=== PATIENT | male | born 1990 | race African-American/Black ===

== ENCOUNTER 2016-08-07 10:10 | Emergency (ER) ==
[2016-08-07 10:17] VITALS: BP 140/86; TEMP 98.1; BMI 34.4
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
== END 2016-08-07 12:06 | disposition home or self-care (01) ==
LOC: ED 10:10
DX: S43.401A Unspecified sprain of right shoulder joint, initial encounter (principal); Y04.0XXA Assault by unarmed brawl or fight, initial encounter
CPT/HCPCS: 99283

== ENCOUNTER 2018-06-02 01:31 | Emergency (ER) ==
[2018-06-02 01:45] VITALS: BP 144/62; TEMP 98.6; BMI 29.1
[2018-06-02] MEDS ORDERED: NORFLEX IM STA (02:26)
[2018-06-02] MEDS ORDERED: TORADOL IM STA (02:26)
--- NOTE | 2018-06-02 02:29 | ED.PDOC ---
General ED Provider: Dr. KAMALA CLARK Chief Complaint: Shoulder Pain/Injury Stated Complaint: Patient is a 28 year old who comes to the ER with one day history of right neck , shoulder and scapular pain. Denies any injury. Time Seen by Physician: 02:27 Mode of Arrival: Walk-In Information Source: Patient Exam Limitations: No limitations [facility] and Triage Documentation Reviewed and Agree: Yes Does patient meet sepsis criteria?: No System Inflammatory Response Syndrome: Not Applicable Sepsis Protocol: For patient's 13 years and over: Temp is 96.8 and below OR 101 and greater Pulse >90 BPM Resp >20/minute Acutely Altered Mental Status Are patient's symptoms suggestive of a new infection, such as: -Pneumonia -Skin, Soft Tissue -Endocarditis -UTI -Bone, Joint Infection -Implantable Device -Acute Abdominal Infection -Wound Infection -Meningitis -Blood Stream Catheter Infection -Unknown Review of Systems - Review Of Systems Constitutional: Reports: No symptoms Eyes: Reports: No symptoms Ears, Nose, Mouth, Throat: Reports: No symptoms Respiratory: Reports: No symptoms Cardiac: Reports: No symptoms GI: Reports: No symptoms : Reports: No symptoms Musculoskeletal: Reports: Back pain, Joint pain, Neck pain Skin: Reports: No symptoms Neurological: Reports: Anxiety Endocrine: Reports: No symptoms Hematologic/Lymphatic: Reports: No symptoms All Other Systems: Reviewed and Negative Past Medical History - Past Medical History Previously Healthy: Yes Endocrine: Reports: None Cardiovascular: Reports: None Respiratory: Reports: None Hematological: Reports: None Gastrointestinal: Reports: None Genitourinary: Reports: None Neuro/Psych: Reports: None Musculoskeletal: Reports: Other (Right shoulder injury ) Cancer: Reports: None - Surgical History General Surgical History: Reports: Orthopedic (toe surgery) - Family History Family History: Reports: None - Social History Smoking Status: Current every day smoker, Light tobacco smoker Hx Substance Use: No Alcohol Screening: Occasionally - Immunizations Tetanus Shot up to Date: Yes Physical Exam - Physical Exam Appearance: Well-appearing Pain Distress: Severe Neck: Supple Respiratory: Airway patent, Breath sounds clear, Breath sounds equal, Respirations nonlabored Cardiovascular: RRR, Pulses normal, No rub, No murmur GI/: Soft, Nontender, No masses, Bowel sounds normal, No Organomegaly Musculoskeletal: Normal strength, ROM intact, No edema Skin: Warm Neurological: Sensation intact Psychiatric: Anxious Critical Care Note - Critical Care Note Total Time (mins): 0 Course - Course Orders, Labs, Meds: Orders Category Date Time Status Ketorolac Tromethamine [Toradol] MEDS 06/02/18 02:26 Stat 60 mg IM ONCE STA Orphenadrine Citrate [Norflex] MEDS 06/02/18 02:26 Stat 60 mg IM ONCE STA Vital Signs: Temp Pulse Resp BP Pulse Ox 06/02/18 01:32 98.6 F 89 20 144/62 H 97 Departure - Departure Time of Disposition: 03:15 Disposition: HOME SELF-CARE Discharge Problem: Shoulder pain Back pain Qualifiers: Back pain location: thoracic back pain Chronicity: acute Back pain laterality: right Qualified Code(s): M54.6 - Pain in thoracic spine Instructions: Arthralgia (ED), Back Pain (ED), Shoulder Sprain (ED) Condition: Stable Pt referred to PMD for follow-up: Yes IPMP verified?: No Additional Instructions: take medications as prescribed Follow up with PCP in 3 days Prescriptions: Cyclobenzaprine HCl [Flexeril] 10 mg PO DAILY PRN #20 tablet PRN Reason: spasms Ibuprofen [Motrin] 600 mg PO Q6H PRN #30 tablet PRN Reason: Analgesia Allergies/Adverse Reactions: Allergies No Known Allergies Allergy (Verified 06/02/18 01:45) Home Medications: Ambulatory Orders Cyclobenzaprine HCl [Flexeril] 10 mg PO DAILY PRN #20 tablet 06/02/18 Ibuprofen [Motrin] 600 mg PO Q6H PRN #30 tablet 06/02/18 Disposition Discussed With: Patient
== END 2018-06-02 03:31 | disposition home or self-care (01) ==
LOC: ED 01:31
DX: M54.6 Pain in thoracic spine (principal); M25.511 Pain in right shoulder; M54.2 Cervicalgia; F17.210 Nicotine dependence, cigarettes, uncomplicated
CPT/HCPCS: 96372; 99282

== ENCOUNTER 2018-10-01 23:12 | Emergency (ER) ==
[2018-10-01 23:15] VITALS: BP 121/86; TEMP 97.3; BMI 29.2
--- NOTE | 2018-10-01 23:25 | ED.PDOC ---
General ED Provider: Dr. VICKIE ADAN-ER Chief Complaint: Tooth Problem Stated Complaint: my tooth hurts Time Seen by Physician: 23:22 Mode of Arrival: Walk-In Information Source: Patient Exam Limitations: No limitations Primary Care Provider: DENAE MCMILLAN Nursing and Triage Documentation Reviewed and Agree: Yes Does patient meet sepsis criteria?: No System Inflammatory Response Syndrome: Not Applicable Sepsis Protocol: For patient's 13 years and over: Temp is 96.8 and below OR 101 and greater Pulse >90 BPM Resp >20/minute Acutely Altered Mental Status Are patient's symptoms suggestive of a new infection, such as: -Pneumonia -Skin, Soft Tissue -Endocarditis -UTI -Bone, Joint Infection -Implantable Device -Acute Abdominal Infection -Wound Infection -Meningitis -Blood Stream Catheter Infection -Unknown EENT Complaint Exam - Dental/Oral Complaint/Exam Mechanism of Injury: No known trauma Onset/Duration: 2 days Symptoms Are: Still present Timing: Constant Initial Severity: Mild Current Severity: Moderate Location: right lower molar Character: Reports: Dull, Aching, Throbbing Aggravating: Reports: Heat, Cold, Chewing Associated Signs and Symptoms: Denies: Swelling, Discharge, Fever, Foul odor, Foul taste in mouth Related History: Reports: Similar episode, Previous tooth problem Tooth Findings: Present: Percussion tenderness, Gross decay, Gross caries Cervical Lymphadenopathy Present: No Facial Swelling Present: Yes Bleeding Present: No Oropharynx Findings: Absent: Clots, Active bleeding Septal Hematoma: No Foreign Body Present: No Dysphagia Present: No Drooling Present: No Asymmetrical Tonsillar Swelling Present: No Uvula Midline: Yes [place]-tonsillar Fluctuence: No Trismus Present: No Palatal Petechiae Present: No Scarlatinaform Rash Present: No Differential Diagnoses: Dental Abcess, Dental Caries, Fractured Tooth Review of Systems - Review Of Systems Constitutional: Reports: No symptoms Eyes: Reports: No symptoms Ears, Nose, Mouth, Throat: Reports: Mouth pain, Mouth swelling Respiratory: Reports: No symptoms Cardiac: Reports: No symptoms GI: Reports: No symptoms : Reports: No symptoms Musculoskeletal: Reports: No symptoms Skin: Reports: No symptoms Neurological: Reports: No symptoms Endocrine: Reports: No symptoms Hematologic/Lymphatic: Reports: No symptoms All Other Systems: Reviewed and Negative Past Medical History - Past Medical History Previously Healthy: Yes Endocrine: Reports: None Cardiovascular: Reports: None Respiratory: Reports: None Hematological: Reports: None Gastrointestinal: Reports: None Genitourinary: Reports: None Neuro/Psych: Reports: None Musculoskeletal: Reports: Other (Right shoulder injury ) Cancer: Reports: None - Surgical History General Surgical History: Reports: Orthopedic (toe surgery) - Family History Family History: Reports: None - Social History Smoking Status: Current every day smoker, Light tobacco smoker Hx Substance Use: No Alcohol Screening: Occasionally - Immunizations Tetanus Shot up to Date: No Physical Exam - Physical Exam Appearance: Well-appearing Pain Distress: Moderate Eyes: ARELY ENT: Ears normal, Nose normal, Oropharynx normal (exam does confirm right lower molar is tender to palpation with swollen surrounding gums) Neck: Supple Respiratory: Airway patent Cardiovascular: RRR GI/: Soft, Nontender, No masses, Bowel sounds normal, No Organomegaly Musculoskeletal: Normal strength, ROM intact, No edema, No calf tenderness Skin: Warm, Dry, Normal color Neurological: Sensation intact, Motor intact, Reflexes intact, Cranial nerves intact, Alert, Oriented Psychiatric: Affect appropriate, Mood appropriate Critical Care Note - Critical Care Note Total Time (mins): 0 Course - Course Vital Signs: Temp Pulse Resp BP Pulse Ox 10/01/18 23:14 97.3 F L 84 18 121/86 98 Departure - Departure Time of Disposition: 23:25 Disposition: HOME SELF-CARE Discharge Problem: Dental caries Instructions: Dental Abscess (ED) Condition: Good Pt referred to PMD for follow-up: No IPMP verified?: No Additional Instructions: augmentin 875mg bid x 7 days---norco 7.5mg q 4hrs pn pain #12---f/u dentist nikki Allergies/Adverse Reactions: Allergies No Known Allergies Allergy (Verified 10/01/18 23:15) Home Medications: Ambulatory Orders 1 [No Reported Medications] 10/01/18 Disposition Discussed With: Patient, Family
== END 2018-10-01 23:30 | disposition home or self-care (01) ==
LOC: ED 23:12
DX: K08.89 Other specified disorders of teeth and supporting structures (principal); K02.7 Dental root caries; F17.210 Nicotine dependence, cigarettes, uncomplicated
CPT/HCPCS: 99282

== ENCOUNTER 2019-03-10 16:09 | Outpatient (CLI) | END 2019-03-10 16:10 | disposition home or self-care (01) | LOC: RHC-LAB 16:09 | PROVIDERS: ATTEND Nurse Practitioner Family | DX: A59.9 Trichomoniasis, unspecified (principal) | CPT/HCPCS: 81001 ==